=== PATIENT | female | born 1990 | race American Indian/Alaskan Native ===

== ENCOUNTER 2016-07-08 11:21 | Outpatient (CLI) | payer MEDICAID ==
--- NOTE | 2016-07-08 14:00 | Ultrasound Report ---
ULTRASOUND PELVIC COMPLETE ULTRASOUND TRANSVAGINAL HISTORY: Pelvic pain. TECHNIQUE: Transabdominal and transvaginal ultrasound with color and spectral doppler interrogation. Longitudinal and transverse real-time images of the pelvis demonstrate that the uterus and ovaries are present and in a normal location. They are of normal echogenicity, contour and size. No pathologic changes in the adjacent tissues are noted. IMPRESSION: Unremarkable transabdominal and transvaginal pelvic ultrasounds.
== END 2016-07-08 11:22 | disposition home or self-care (01) ==
LOC: US 11:21
PROVIDERS: ATTEND Family Medicine
DX: R10.2 Pelvic and perineal pain (principal)
CPT/HCPCS: 76830; 76856

== ENCOUNTER 2018-12-16 11:46 | Emergency (ER) | payer MEDICAID ==
--- NOTE | 2018-12-16 14:36 | Emergency Department Report ---
ED Fever HPI - General Chief Complaint: Fever Stated Complaint: FEVER/TEMP 103/BODY ACHE Time Seen by Provider: 12/16/18 14:27 - History of Present Illness Initial Comments: Patient is 28 years old female with no significant past medical history. Patient presented to the ER complaining of fever for the last 3 days. Patient also complaining of mild cough. She also complaining of generalized body pain. Patient denied any nausea, vomiting or diarrhea. ED Review of Systems ROS: Stated complaint: FEVER/TEMP 103/BODY ACHE Other details as noted in HPI Comment: All other systems reviewed and negative Constitutional: denies: chills, fever Respiratory: denies: cough, orthopnea, shortness of breath, SOB with exertion Cardiovascular: denies: chest pain, palpitations Gastrointestinal: denies: abdominal pain, nausea, vomiting Musculoskeletal: denies: back pain Neurological: denies: headache, weakness ED Past Medical Hx - Past Medical History Previous Medical History?: Yes Additional medical history: EPILEPSY - Surgical History Past Surgical History?: No - Social History Smoking Status: Current Every Day Smoker Substance Use Type: Alcohol, Marijuana ED Physical Exam - General Limitations: No Limitations General appearance: alert, in no apparent distress - Head Head exam: Present: atraumatic, normocephalic, normal inspection - Eye Eye exam: Present: normal appearance - ENT ENT exam: Present: normal exam, normal orophraynx, mucous membranes moist - Neck Neck exam: Present: normal inspection. Absent: tenderness, meningismus - Respiratory Respiratory exam: Present: normal lung sounds bilaterally - Cardiovascular Cardiovascular Exam: Present: regular rate, normal rhythm, normal heart sounds - GI/Abdominal GI/Abdominal exam: Present: soft, normal bowel sounds. Absent: distended, tenderness, guarding, rebound, rigid, organomegaly, mass, bruit, pulsatile mass, hernia - Extremities Exam Extremities exam: Present: normal inspection, full ROM, normal capillary refill. Absent: tenderness, pedal edema, joint swelling, calf tenderness - Back Exam Back exam: Present: normal inspection, full ROM. Absent: CVA tenderness (R), CVA tenderness (L), muscle spasm, paraspinal tenderness, vertebral tenderness - Neurological Exam Neurological exam: Present: alert, oriented X3, CN II-XII intact, normal gait, reflexes normal - Psychiatric Psychiatric exam: Present: normal mood - Skin Skin exam: Present: warm, intact, normal color ED Course Vital Signs 12/16/18 12:01 Temperature 99.8 F H Pulse Rate 111 H Respiratory 17 Rate Blood Pressure 121/59 O2 Sat by Pulse 100 Oximetry ED Medical Decision Making - Lab Data Result diagrams: 12/16/18 14:35 12/16/18 14:35 - Radiology Data Radiology results: report reviewed - Medical Decision Making Patient is 28 years old female with no significant past medical history. Patient presented to the ER complaining of fever for the last 3 days. Patient also complaining of mild cough. She also complaining of generalized body pain. Patient denied any nausea, vomiting or diarrhea. Labs reviewed and is unremarkable except for a strongly positive urine for UTI. Patient given Rocephin IM in the ER and given a prescription for ciprofloxacin seen and advised to follow-up with her primary care physician in the next 2-3 days for further management and to attend to the ER if symptoms are not improved. Critical care attestation.: If time is entered above; I have spent that time in minutes in the direct care of this critically ill patient, excluding procedure time. ED Disposition Clinical Impression: Fever, UTI (urinary tract infection) Disposition: - TO HOME OR SELFCARE Is pt being admited?: No Condition: Stable Instructions: Fever in Adults (ED), Urinary Tract Infection in Women (ED) Referrals: [facility] [Provider Group] - 3-5 Days
[2018-12-16] MEDS ORDERED: ACETAMINOPHEN 325 MG TAB PO ONE (14:37)
[2018-12-16 14:49] LABS: Basophils % (Auto) 0.4 % (0.0-1.8); Eosinophils % (Auto) 0.1 % (0.0-4.3); Hematocrit 36.9 % (30.3-42.9); Hemoglobin 11.7 gm/dl (10.1-14.3); Lymphocytes # (Auto) 0.9 K/mm3 (1.2-5.4); Lymphocytes % (Auto) 8.8 % (13.4-35.0); Mean Corpuscular HGB Conc 32 % (30-34); Mean Corpuscular Volume 73 fl (79-97); Monocytes # (Auto) 1.2 K/mm3 (0.0-0.8); Monocytes % (Auto) 11.2 % (0.0-7.3); Platelet Count 200 K/mm3 (140-440); Red Blood Count 5.08 M/mm3 (3.65-5.03); Red Cell Distribution Width 19.3 % (13.2-15.2)
[2018-12-16 15:06] LABS: Alanine Aminotransferase 12 units/L (7-56); BUN/Creatinine Ratio 13; Blood Urea Nitrogen 9 mg/dL (7-17); Calcium 9.1 mg/dL (8.4-10.2); Hemolysis Index 3
[2018-12-16 15:43] LABS: Bacteria,Urine 4+ /HPF (Negative); Bilirubin,Urine NEG (Negative); Blood,Urine LG (Negative); Color,Urine Yellow (Yellow); Hyaline Casts,Urine 2 /LPF; Mucus,Urine 3+ /HPF; Urobilinogen,Urine < 2.0 mg/dL (<2.0)
[2018-12-16] MEDS ORDERED: LIDOCAINE-MPF (1%) 10 MG/1 ML VIAL 5 ML INFILTRATI ONE (16:10)
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
[2018-12-16 16:52] VITALS: BP 114/73
== END 2018-12-16 17:14 | disposition home or self-care (01) ==
LOC: ED 11:46
DX: N39.0 Urinary tract infection, site not specified (principal); G40.909 Epilepsy, unspecified, not intractable, without status epilepticus; F17.200 Nicotine dependence, unspecified, uncomplicated; F12.10 Cannabis abuse, uncomplicated
CPT/HCPCS: 36415; 71045; 80053; 81001; 84703; 85025; 96372; 99284; J0696

== ENCOUNTER 2021-01-03 10:09 | Emergency (ER) | payer OTHER, MEDICAID ==
[2021-01-03] MEDS ORDERED: HYDROcodone/ACETAMINOPHEN 5-325 MG TAB PO ONE (10:25)
[2021-01-03] MEDS ORDERED: TETANUS,DIPH,PERTUSS(ACELL) VACCINE 0.5 ML SYRINGE IM ONE (10:26)
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
[2021-01-03 11:05] LABS: Basophils % (Auto) 0.3 % (0.0-1.8); Eosinophils % (Auto) 0.1 % (0.0-4.3); Lymphocytes # (Auto) 1.4 K/mm3 (1.2-5.4); Lymphocytes % (Auto) 16.3 % (13.4-35.0); Mean Corpuscular HGB Conc 31 % (30-34); Mean Corpuscular Volume 76 fl (79-97); Monocytes # (Auto) 0.4 K/mm3 (0.0-0.8); Monocytes % (Auto) 5.1 % (0.0-7.3); Platelet Count 180 K/mm3 (140-440); Red Blood Count 5.02 M/mm3 (3.65-5.03); Red Cell Distribution Width 18.4 % (13.2-15.2)
[2021-01-03 11:06] LABS: Hematocrit 38.3 % (30.3-42.9); Hemoglobin 11.7 gm/dl (10.1-14.3)
[2021-01-03 11:28] LABS: Alanine Aminotransferase 19 units/L (7-56); Albumin 4.4 g/dL (3.9-5); Blood Urea Nitrogen 9 mg/dL (7-17); Calcium 8.8 mg/dL (8.4-10.2); Hemolysis Index 36
[2021-01-03 11:32] LABS: BUN/Creatinine Ratio 18
--- NOTE | 2021-01-03 12:03 | XRay Report ---
Sacrum 6 views INDICATION: Sacral pain following injury. IMPRESSION: The sacrum appears grossly intact. Signer Name: Mauricio Ricardo MD Signed: 01/03/2021 11:58 AM Workstation Name: [id number]
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
--- NOTE | 2021-01-03 12:21 | XRay Report ---
Lumbar spine 3 views INDICATION: Low back pain following injury IMPRESSION: No fracture or subluxation is identified. Signer Name: Mauricio Ricardo MD Signed: 01/03/2021 12:17 PM Workstation Name: [id number]
--- NOTE | 2021-01-03 12:22 | XRay Report ---
Thoracic spine 3 views INDICATION: Back pain following injury IMPRESSION: No fracture or subluxation appreciated. Signer Name: Mauricio Ricardo MD Signed: 01/03/2021 12:17 PM Workstation Name: [id number]
[2021-01-03 13:43] VITALS: BP 130/70
== END 2021-01-03 13:43 | disposition home or self-care (01) ==
LOC: ED 10:09
DX: S81.012A Laceration without foreign body, left knee, initial encounter (principal); M54.2 Cervicalgia; M76.01 Gluteal tendinitis, right hip; M54.9 Dorsalgia, unspecified; H01.00B Unspecified blepharitis left eye, upper and lower eyelids; F17.200 Nicotine dependence, unspecified, uncomplicated; F12.10 Cannabis abuse, uncomplicated; V49.49XA Driver injured in collision with other motor vehicles in traffic accident, initial encounter; Y93.89 Activity, other specified; Y92.89 Other specified places as the place of occurrence of the external cause; Y99.8 Other external cause status
CPT/HCPCS: 36415; 71046; 72070; 72100; 72125; 72220; 80053; 84703; 85025; 90471; 90715; 99284